=== PATIENT | male | born 1945 | race Caucasian/White ===

== ENCOUNTER 2016-08-29 19:41 | Inpatient (IN) | payer OTHER ==
[~2016-08-29] VITALS: Ht 167.6 cm; Wt 73.9 kg
[~2016-08-29 19:41] MED LIST: ASPIR-LOW81 MG PO; AUGMENTIN875 MG PO; AZELASTINE137 MCG/0. BOTH NARES; CARDIZEM30 MG PO; DIGITEK250 MC2 PO; DULCOLAX10 MG PR; ENEMA133 M2 PR; FAMOTIDINE20 MG PO; FLONASE ALLERG9.9 ML BOTH NARES; KEPPRA100 MG/1 M PO; LEVAQUIN500 MG PO; LORAZEPAM0.5 MG PO; METOCLOPRAMIDE10 MG PO; MILK OF MAGN PO; PREDNISONE10 MG PO; PROAIR HFA8.5 GM IH; PROVENTIL,2.5 MG/3 M IH; SALINE NASAL SP45 ML BOTH NARES; SIMVASTATIN20 MG PO; SPIRIVA RESPIMAT4 GM IH; ZESTRIL2.5 MG PO
[2016-08-29 21:00] LABS: HEMATOCRIT 43.8 % (38.0-50.0); MCHC 31.1 G/DL (30.0-36.0); MCV 103.1 FL (86-99); MEAN PLAT.VOLUME 9.4 uM^3 (9.0-12.4); PLATELET COUNT 309 K/uL (156-360); RBC DIS.WIDTH-CV 12.2 % (11.8-14.6); RBC DIS.WIDTH-SD 46.2 % (39-53); RED BLOOD COUNT 4.25 M/uL (4.00-5.50); WHITE BLOOD COUNT 17.9 K/uL (4.1-10.2)
[2016-08-29 21:02] LABS: CHLORIDE 80 mEq/L (99-109); POTASSIUM 4.5 mEq/L (3.7-5.4); SODIUM 134 mEq/L (136-147)
[2016-08-29 21:04] LABS: GLUCOSE 79 mg/dL (70-99)
[2016-08-29 21:06] LABS: ANION GAP 12 MEQ/L (2-14); D-DIMER ELISA 0.61 mg/L FEU (< 0.57); TOTAL BILIRUBIN 0.6 mg/dL (0.0-1.0)
[2016-08-29 21:08] LABS: ALKALINE PHOSPHATASE 57 IU/L (3-129); EOSINOPHIL (%) 0.9 % (0-5); EOSINOPHIL COUNT 0.2 K/uL (0-0.3); GFR ESTIMATE (CALCULATED) > 59 mL/min/; IMMATURE GRANULOCYTE (%) 0.5 % (0.0-0.7); IMMATURE GRANULOCYTE COUNT 0.9 K/uL; LYMPHOCYTE COUNT 0.8 K/uL (1.0-2.8); MONOCYTE (%) 13.2 % (3-12); MONOCYTE COUNT 2.4 K/uL (0-0.8); NEUTROPHIL (%) 80.7 % (45-76); NEUTROPHIL COUNT 14.5 K/uL (1.8-6.4)
[2016-08-29 21:09] LABS: UREA NITROGEN (BUN) 16 mg/dL (9-23)
[2016-08-29 21:17] LABS: TROP-I INTERPRETATION NEGATIVE; TROPONIN-I 0.11 ng/mL (0.0-0.30)
[2016-08-29 21:30] LABS: CARBON DIOXIDE (BICARBONATE) > 40.0 mEq/L (20-31)
[2016-08-30] VITALS (21 sets, daily range): BP systolic 97–131; BP diastolic 45–67
[2016-08-30 01:52] LABS: CARBOXY HGB 2.4 % (0-5); COMMENTS - BLOOD GASES A+C+; DEVICE NC; METHEMOGLOBIN 1.2 % (0-1.5); O2 FLOW 4 L/MIN; PCO2 > 123 mm Hg (35-45); PO2 68 mm Hg (80-100); SITE RR; pH 7.18 (7.35-7.45)
[2016-08-30 05:00] LABS: CARBOXY HGB 2.6 % (0-5); COMMENTS - BLOOD GASES A+C+; DEVICE MASK VENT; FI02 40 %; METHEMOGLOBIN 1.2 % (0-1.5); PCO2 > 123 mm Hg (35-45); PEEP 5 CM/H20; PO2 61 mm Hg (80-100); PRES. SUPPORT 15 CM/H2O; SITE LR; TOTAL RESP RATE 14 resp/min; pH 7.16 (7.35-7.45)
[2016-08-30 05:23] LABS: INTER. NORMALIZED RATIO 1.1; PTT 26.8 (25-32)
[2016-08-30 10:00] LABS: BASE EXCESS 16.1 mEq/L (-3 to +3); BICARBONATE 49.1 mEq/L (22-26); CARBOXY HGB 2.2 % (0-5); METHEMOGLOBIN 0 % (0-1.5); PCO2 120 mm Hg (35-45)
[2016-08-30 10:01] LABS: COMMENTS - BLOOD GASES A+C+; DEVICE VENT MV; FI02 50 %; MODE SPONT; PO2 82 mm Hg (80-100); SITE RR; TOTAL RESP RATE 14 resp/min; pH 7.22 (7.35-7.45)
[2016-08-30 10:01] LABS: ADD MIUA? NO; BILIRUBIN NEGATIVE; BLOOD NEGATIVE; COLOR YELLOW ((YELLOW)); GLUCOSE (STRIP) NEGATIVE; KETONES 15; LEUKOCYTES NEGATIVE; NITRITE NEGATIVE; PH, URINE 6.5 (5-8); PROTEIN (STRIP) TRACE; SPECIFIC GRAVITY 1.011 (1.000-1.030); UROBILINOGEN 0.2 MG/DL (0.2-1.0)
[2016-08-30 10:02] LABS: PEEP 5 CM/H20; PRES. SUPPORT 15 CM/H2O
[2016-08-30 10:51] LABS: METH RESISTANT S AUREUS PCR NEGATIVE (NEGATIVE); PROBE CHECK PASS; SPECIMEN PROCESSING CONTROL PASS
[2016-08-30 11:03] LABS: HEMATOCRIT 42.7 % (38.0-50.0); MCHC 30.4 G/DL (30.0-36.0); MCV 105.2 FL (86-99); MEAN PLAT.VOLUME 10.2 uM^3 (9.0-12.4); PLATELET COUNT 262 K/uL (156-360); RED BLOOD COUNT 4.06 M/uL (4.00-5.50); WHITE BLOOD COUNT 20.2 K/uL (4.1-10.2)
[2016-08-30 11:19] LABS: TROP-I INTERPRETATION NEGATIVE; TROPONIN-I 0.07 ng/mL (0.0-0.30)
[2016-08-30 11:37] LABS: ANION GAP 7 MEQ/L (2-14); CHLORIDE 90 MEQ/L (99-109); MAGNESIUM 1.9 mg/dl (1.3-2.7); POTASSIUM 4.8 MEQ/L (3.7-5.4); SAMPLE HEMOLYSIS CHECK 0; SAMPLE ICTERIC CHECK 0; SAMPLE LIPEMIA CHECK 0; SODIUM 134 MEQ/L (136-147)
[2016-08-30 11:42] LABS: GFR ESTIMATE (CALCULATED) > 59 mL/min/; UREA NITROGEN (BUN) 14 mg/dL (9-23)
[2016-08-30 11:43] LABS: GLUCOSE 107 mg/dL (70-99)
[2016-08-30 12:01] LABS: POINT-OF-CARE METER ID UU14162636
[2016-08-30 14:35] LABS: BASE EXCESS 16.5 mEq/L (-3 to +3); CARBOXY HGB 2.3 % (0-5); METHEMOGLOBIN 1.7 % (0-1.5)
[2016-08-30 14:37] LABS: COMMENTS - BLOOD GASES C+; DEVICE 840 VENTILATOR; FI02 50 %; MODE NIPPV; PCO2 76 mm Hg (35-45); PO2 149 mm Hg (80-100); SITE LT RADIAL ALINE; pH 7.38 (7.35-7.45)
[2016-08-30 14:38] LABS: CONTINUOUS POS AIRWAY PRESSURE 5 cm H2O; PRES. SUPPORT 15 CM/H2O; TOTAL RESP RATE 8 resp/min
[2016-08-31] VITALS (25 sets, daily range): BP systolic 49–127; BP diastolic 37–80
[2016-08-31 06:02] LABS: HEMATOCRIT 37.1 % (38.0-50.0); MCV 103.3 FL (86-99); MEAN PLAT.VOLUME 9.9 uM^3 (9.0-12.4); PLATELET COUNT 240 K/uL (156-360); RBC DIS.WIDTH-CV 12.8 % (11.8-14.6); RBC DIS.WIDTH-SD 48.2 % (39-53); RED BLOOD COUNT 3.59 M/uL (4.00-5.50)
[2016-08-31 06:11] LABS: WHITE BLOOD COUNT 11.3 K/uL (4.1-10.2)
[2016-08-31 06:41] LABS: ANION GAP 7 MEQ/L (2-14); CHLORIDE 92 MEQ/L (99-109); GFR ESTIMATE (CALCULATED) > 59 mL/min/; GLUCOSE 90 mg/dL (70-99); MAGNESIUM 1.8 mg/dl (1.3-2.7); SAMPLE HEMOLYSIS CHECK 0; SAMPLE ICTERIC CHECK 0; SAMPLE LIPEMIA CHECK 0; SODIUM 138 MEQ/L (136-147); UREA NITROGEN (BUN) 7 mg/dL (9-23)
[2016-09-01] VITALS (24 sets, daily range): BP systolic 97–151; BP diastolic 51–72
[2016-09-01 06:07] LABS: HEMATOCRIT 43.2 % (38.0-50.0); MCH 32.8 PG (29.0-34.0); MCHC 31.7 G/DL (30.0-36.0); MCV 103.3 FL (86-99); MEAN PLAT.VOLUME 9.8 uM^3 (9.0-12.4); PLATELET COUNT 274 K/uL (156-360); RBC DIS.WIDTH-CV 12.8 % (11.8-14.6); RBC DIS.WIDTH-SD 48.4 % (39-53); RED BLOOD COUNT 4.18 M/uL (4.00-5.50); WHITE BLOOD COUNT 11.8 K/uL (4.1-10.2)
[2016-09-01 06:28] LABS: ANION GAP ND MEQ/L (2-14); CHLORIDE 89 MEQ/L (99-109); GFR ESTIMATE (CALCULATED) > 59 mL/min/; GLUCOSE 92 mg/dL (70-99); POTASSIUM 4.1 MEQ/L (3.7-5.4); SAMPLE HEMOLYSIS CHECK 0; SAMPLE ICTERIC CHECK 0; SAMPLE LIPEMIA CHECK 0; SODIUM 139 MEQ/L (136-147); UREA NITROGEN (BUN) 8 mg/dL (9-23)
[2016-09-01 06:30] LABS: CARBON DIOXIDE (BICARBONATE) > 40.0 MEQ/L (20-31); MAGNESIUM 2.2 mg/dl (1.3-2.7)
[2016-09-02] VITALS (14 sets, daily range): BP systolic 92–113; BP diastolic 46–68
[2016-09-02 06:44] LABS: HEMATOCRIT 37.3 % (38.0-50.0); MCH 31.2 PG (29.0-34.0); MCHC 30.6 G/DL (30.0-36.0); MCV 102.2 FL (86-99); MEAN PLAT.VOLUME 9.5 uM^3 (9.0-12.4); PLATELET COUNT 253 K/uL (156-360); RBC DIS.WIDTH-CV 13.1 % (11.8-14.6); RBC DIS.WIDTH-SD 49.3 % (39-53); RED BLOOD COUNT 3.65 M/uL (4.00-5.50); WHITE BLOOD COUNT 10.4 K/uL (4.1-10.2)
[2016-09-02 06:48] LABS: ANION GAP ND MEQ/L (2-14); CHLORIDE 90 MEQ/L (99-109); GFR ESTIMATE (CALCULATED) > 59 mL/min/; GLUCOSE 76 mg/dL (70-99); MAGNESIUM 2.1 mg/dl (1.3-2.7); POTASSIUM 3.8 MEQ/L (3.7-5.4); SAMPLE HEMOLYSIS CHECK 0; SAMPLE ICTERIC CHECK 0; SAMPLE LIPEMIA CHECK 0; SODIUM 140 MEQ/L (136-147); UREA NITROGEN (BUN) 11 mg/dL (9-23)
[2016-09-02 06:56] LABS: CARBON DIOXIDE (BICARBONATE) > 40.0 MEQ/L (20-31)
[2016-09-03] VITALS (8 sets, daily range): BP systolic 96–121; BP diastolic 57–67
[2016-09-03 11:33] LABS: EOSINOPHIL (%) 1.6 % (0-5); EOSINOPHIL COUNT 0.2 K/uL (0-0.3); HEMATOCRIT 40.9 % (38.0-50.0); IMMATURE GRANULOCYTE (%) 0.3 % (0.0-0.7); LYMPHOCYTE COUNT 0.5 K/uL (1.0-2.8); MCH 31.7 PG (29.0-34.0); MCHC 30.6 G/DL (30.0-36.0); MCV 103.8 FL (86-99); MEAN PLAT.VOLUME 9.3 uM^3 (9.0-12.4); MONOCYTE (%) 3.9 % (3-12); MONOCYTE COUNT 0.4 K/uL (0-0.8); NEUTROPHIL (%) 89.5 % (45-76); NEUTROPHIL COUNT 9.4 K/uL (1.8-6.4); PLATELET COUNT 248 K/uL (156-360); RBC DIS.WIDTH-CV 13.2 % (11.8-14.6); RBC DIS.WIDTH-SD 49.8 % (39-53); RED BLOOD COUNT 3.94 M/uL (4.00-5.50); WHITE BLOOD COUNT 10.5 K/uL (4.1-10.2)
[2016-09-03 12:18] LABS: ANION GAP ND MEQ/L (2-14); CHLORIDE 90 MEQ/L (99-109); GFR ESTIMATE (CALCULATED) > 59 mL/min/; POTASSIUM 4.5 MEQ/L (3.7-5.4); SAMPLE HEMOLYSIS CHECK 0; SAMPLE ICTERIC CHECK 0; SAMPLE LIPEMIA CHECK 0; SODIUM 139 MEQ/L (136-147); UREA NITROGEN (BUN) 14 mg/dL (9-23)
[2016-09-03 12:20] LABS: CARBON DIOXIDE (BICARBONATE) > 40.0 MEQ/L (20-31); GLUCOSE 156 mg/dL (70-99)
[2016-09-04 06:04] LABS: EOSINOPHIL (%) 1.8 % (0-5); EOSINOPHIL COUNT 0.2 K/uL (0-0.3); HEMATOCRIT 37.9 % (38.0-50.0); IMMATURE GRANULOCYTE (%) 0.5 % (0.0-0.7); IMMATURE GRANULOCYTE COUNT 0.1 K/uL; LYMPHOCYTE COUNT 1.6 K/uL (1.0-2.8); MCH 32.2 PG (29.0-34.0); MCHC 31.4 G/DL (30.0-36.0); MCV 102.4 FL (86-99); MEAN PLAT.VOLUME 9.4 uM^3 (9.0-12.4); MONOCYTE (%) 11.4 % (3-12); MONOCYTE COUNT 1.2 K/uL (0-0.8); NEUTROPHIL (%) 70.1 % (45-76); NEUTROPHIL COUNT 7.1 K/uL (1.8-6.4); PLATELET COUNT 225 K/uL (156-360); RBC DIS.WIDTH-CV 12.9 % (11.8-14.6); RBC DIS.WIDTH-SD 48.9 % (39-53); WHITE BLOOD COUNT 10.2 K/uL (4.1-10.2)
[2016-09-04 06:51] LABS: ANION GAP ND MEQ/L (2-14); CHLORIDE 90 MEQ/L (99-109); GFR ESTIMATE (CALCULATED) > 59 mL/min/; POTASSIUM 4.1 MEQ/L (3.7-5.4); SAMPLE HEMOLYSIS CHECK 0; SAMPLE ICTERIC CHECK 0; SAMPLE LIPEMIA CHECK 0; SODIUM 137 MEQ/L (136-147); UREA NITROGEN (BUN) 12 mg/dL (9-23)
[2016-09-04 07:08] LABS: CARBON DIOXIDE (BICARBONATE) > 40.0 MEQ/L (20-31); GLUCOSE 92 mg/dL (70-99)
[2016-09-04 09:25] VITALS: BP 118/59
[2016-09-04 12:44] VITALS: BP 115/61
[2016-09-04] MEDS ORDERED: FAMOTIDINE20 MG PO (13:17)
[2016-09-04] MEDS ORDERED: DUONEB 2.5-0.5 M3 ML AEROSOL (13:17)
[2016-09-04] MEDS ORDERED: DIGOXIN250 MCG PO (13:17)
[2016-09-04] MEDS ORDERED: DOCUSATE SODIU100 MG PO (13:17)
[2016-09-04] MEDS ORDERED: OXYCODONE HCL5 MG PO (13:17)
[2016-09-04] MEDS ORDERED: LEVETIRACETAM500 MG PO (13:17)
== END 2016-09-04 15:01 | disposition home or self-care (01) | DRG 981 ==
LOC: EME 19:41 → EDOF 08-30 01:35 → 4WEST 08-30 01:35 → EDOF 08-30 04:20 → 4WEST 08-30 07:30 → 4EAST 09-03 01:06
PROVIDERS: Emergency Medicine; Hospitalist; Internal Medicine; Physician Assistant
PROC: 06HM3DZ Insertion of Intraluminal Device into Right Femoral Vein, Percutaneous Approach (ICD-10-PCS; principal; 2016-08-30)
PROC: 5A1945Z Respiratory Ventilation, 24-96 Consecutive Hours (ICD-10-PCS; principal; 2016-08-30)
PROC: 0W9930Z Drainage of Right Pleural Cavity with Drainage Device, Percutaneous Approach (ICD-10-PCS; principal; 2016-08-30)
PROC: 0WP8X0Z Removal of Drainage Device from Chest Wall, External Approach (ICD-10-PCS; 2016-09-01)
DX: J96.01 Acute respiratory failure with hypoxia (principal); R57.0 Cardiogenic shock; J44.1 Chronic obstructive pulmonary disease with (acute) exacerbation; N17.9 Acute kidney failure, unspecified; J93.83 Other pneumothorax; I48.1 Persistent atrial fibrillation; E87.2 Acidosis; R64 Cachexia; I95.9 Hypotension, unspecified; I10 Essential (primary) hypertension; K21.9 Gastro-esophageal reflux disease without esophagitis; E78.5 Hyperlipidemia, unspecified; Z99.81 Dependence on supplemental oxygen; Z87.891 Personal history of nicotine dependence; Z66 Do not resuscitate
CPT/HCPCS: 36600; 36620; 70551; 71010; 71250; 71275; 74177; 80048; 80053; 81003; 82803; 82948; 83605; 83735; 84100; 84484; 85025; 85027; 85379; 85610; 85730; 87040; 87641; 93005; 94002; 94640; 94640 76; 94760; 94799; 99202; 99281; 99285; J0456; J0696; J1170; J1644; J2270; J2405; J3360; J3475; J7030; J7050; J7512; S0020; S0028